=== PATIENT | female | born 1990 | race Caucasian/White ===

== ENCOUNTER 2017-07-18 18:56 | Emergency (ER) | payer OTHER, MEDICAID ==
[~2017-07-18] VITALS: Ht 165.1 cm; Wt 90.7 kg
[2017-07-18 19:06] VITALS: BP 150/72
[2017-07-18 19:36] LABS: ABSOLUTE BASOPHILS 0.1 thou/uL (0.0-0.2); ABSOLUTE EOSINOPHILS 0.4 thou/uL (0.0-0.7); ABSOLUTE LYMPHOCYTES 4.4 thou/uL (0.8-5.3); ABSOLUTE MONOCYTES 0.7 thou/uL (0.0-1.2); ABSOLUTE NEUTROPHILS 10.4 thou/uL (1.6-8.1); BASOPHILS 0.5 %; EOSINOPHILS 2.4 %; HEMATOCRIT 37.6 % (37.0-47.0); HEMOGLOBIN 12.1 gm/dL (12.0-15.0); LYMPHOCYTES 27.3 %; MCH 25.6 pg (26.0-34.0); MCHC 32.3 g/dL (28.0-37.0); MCV 79.4 fL (80.0-100.0); MONOCYTES 4.5 %; MPV 8.9 fl. (7.2-11.1); NUCLEATED RBCS 0 /100WBC; PLATELET COUNT* 362 thou/uL (150-400); POLYS 65.3 %; RBC 4.73 mil/uL (4.20-5.00); RDW-CV 14.3 % (10.5-14.5)
[2017-07-18 19:43] LABS: CALCIUM 8.7 mg/dL (8.5-10.1); CREATININE 0.9 mg/dL (0.6-1.3); POTASSIUM 3.9 mmol/L (3.5-5.1)
[2017-07-18 19:48] LABS: ALBUMIN 3.6 g/dL (3.4-5.0); TOTAL BILIRUBIN 0.2 mg/dL (<0.1-1.0); TOTAL PROTEIN 7.4 g/dL (6.4-8.2)
--- NOTE | 2017-07-19 12:01 | EKG ---
[place] [address] ELECTROCARDIOGRAM REPORT Name: JANNA GRUBER Room: [facility]#: [id number] Admission: 07/18/17 Attend Phys: Discharge: 07/18/17 Date of : 89 Report #: [id number] THIS REPORT FOR: //name// [facility] ED Test Date: 2017-07-18 Test Time: 19:10:42 Pat Name: JANNA GRUBER Department: Room: Gender: F Expedition Supervisor: KWASI Romero : 1990 Requested By: Emma Alvarez Order Number: [id number] MD: El Lares Measurements Intervals [place] Rate: 92 P: 41 AR: 156 QRS: 73 QRSD: 89 T: 57 QT: 330 QTc: 409 Interpretive Statements Sinus rhythm No previous ECG available for comparison Electronically Signed On 07-19-2017 12:01:11 PROFESSOR OF ASTRONOMY by El Lares [email or web address] <ELECTRONICALLY SIGNED> By: El Lares MD, [facility] 07/19/17 1201 191 09 El Lares MD, FACC /EPI
== END 2017-07-18 20:24 | disposition left against medical advice (07) ==
LOC: M.ERS 18:56
PROVIDERS: Nurse Practitioner Family
DX: R07.89 Other chest pain (principal)

== ENCOUNTER 2020-01-26 02:54 | Emergency (ER) | payer MEDICAID ==
[~2020-01-26] VITALS: Ht 165.1 cm; Wt 93.0 kg
[2020-01-26 03:20] LABS: ABSOLUTE BASOPHILS 0.1 thou/uL (0.0-0.2); ABSOLUTE EOSINOPHILS 0.2 thou/uL (0.0-0.7); ABSOLUTE LYMPHOCYTES 3.4 thou/uL (0.8-5.3); ABSOLUTE MONOCYTES 0.6 thou/uL (0.0-1.2); ABSOLUTE NEUTROPHILS 11.8 thou/uL (1.6-8.1); BASOPHILS 0.4 %; HEMATOCRIT 33.7 % (37.0-47.0); HEMOGLOBIN 11.2 gm/dL (12.0-15.0); LYMPHOCYTES 21.2 %; MCH 25.7 pg (26.0-34.0); MCHC 33.2 g/dL (28.0-37.0); MCV 77.4 fL (80.0-100.0); MONOCYTES 3.7 %; NUCLEATED RBCS 0 /100WBC; PLATELET COUNT* 454 thou/uL (150-400); POLYS 73.7 %; RBC 4.35 mil/uL (4.20-5.00); RDW-CV 13.6 % (10.5-14.5); WBC 16.1 thou/uL (4.0-11.0)
[2020-01-26 03:22] LABS: URINE BILIRUBIN NEGATIVE (Negative); URINE BLOOD NEGATIVE (Negative); URINE CLARITY CLEAR; URINE COLOR YELLOW; URINE GLUCOSE-RANDOM NEGATIVE (Negative); URINE KETONES NEGATIVE (Negative); URINE LEUKOCYTES-REFLEX NEGATIVE (Negative); URINE NITRITE-REFLEX NEGATIVE (Negative); URINE PROTEIN TRACE (Negative); URINE SPECIFIC GRAVITY 1.025 (1.005-1.030)
[2020-01-26 03:29] LABS: AMP/METHAMP POSITIVE (Negative); BARBITURATES Negative (Negative); BENZODIAZEPINES Negative (Negative); COCAINE Negative (Negative); METHADONE Negative (Negative); OPIATES Negative (Negative); PCP Negative (Negative); THC Negative (Negative)
[2020-01-26 03:29] LABS: CALCIUM 8.7 mg/dL (8.5-10.1); CREATININE 0.9 mg/dL (0.6-1.3); POTASSIUM 3.9 mmol/L (3.5-5.1)
[2020-01-26 03:33] LABS: ALBUMIN 3.2 g/dL (3.4-5.0); TOTAL BILIRUBIN 0.3 mg/dL (<0.1-1.0)
[2020-01-26 06:11] VITALS: BP 91/47
== END 2020-01-26 06:11 | disposition home or self-care (01) ==
LOC: M.ERS 02:54
PROVIDERS: Personal Emergency Response Attendant
DX: R10.32 Left lower quadrant pain (principal); F15.129 Other stimulant abuse with intoxication, unspecified; F19.20 Other psychoactive substance dependence, uncomplicated; Z98.890 Other specified postprocedural states